=== PATIENT | female | born 2000 | race Caucasian/White ===

== ENCOUNTER 2022-01-09 15:28 | Outpatient (REF) | payer MEDICAID, SELFPAY ==
[2022-01-09 15:48] LABS: Binax Internal Control QC Valid; Binax Now Covid-19 Ag Negative (Negative)
== END 2022-01-09 15:29 | disposition home or self-care (01) ==
LOC: HO.HMGCLDS 15:28
PROVIDERS: Visit Provider Physician Assistant
DX: Z20.822 Contact with and (suspected) exposure to COVID-19 (principal); J02.9 Acute pharyngitis, unspecified
CPT/HCPCS: 87811; C9803